=== PATIENT | male | born 1990 | race American Indian/Alaskan Native ===

== ENCOUNTER 2021-11-23 09:38 | Emergency (ER) | payer SELFPAY ==
[2021-11-23] MEDS ORDERED: KETOROLAC 60 MG/2 ML INJ IM ONE (12:07)
[2021-11-23] MEDS ORDERED: dexAMETHasone 20 MG/5 ML VIAL IM ONE (12:08)
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
[2021-11-23 13:29] VITALS: BP 110/58
== END 2021-11-23 14:20 | disposition home or self-care (01) ==
LOC: ED 09:38
DX: M54.50 Low back pain, unspecified (principal)
CPT/HCPCS: 96372; 99282; J1100; J1885